=== PATIENT | female | born 1945 | race African-American/Black ===

== ENCOUNTER 2017-07-19 14:42 | Inpatient (IN) | payer OTHER, BC ==
[~2017-07-19] VITALS: Ht 165.1 cm; Wt 74.8 kg
--- NOTE | ~2017-07-19 | EKG ---
[address] [address] [place] [address] ELECTROCARDIOGRAM REPORT Name: ENA MOLINA [id number] Admission: 07/19/17 Attend Phys: Discharge: Date of : 41 Report #: [id number] THIS REPORT FOR: //name// [facility] ED Test Date: 2017-07-19 Test Time: 14:56:24 Pat Name: ENA MOLINA Department: Room: Gender: F Damage Inside Adjuster: ELIER : 1945 Requested By: Albert Mueller Order Number: [id number] MD: Chris Dhillon Measurements Intervals [place] Rate: 63 P: 34 HI: 180 QRS: -11 QRSD: 96 T: 30 QT: 397 QTc: 407 Interpretive Statements Sinus rhythm No significant abnormality Compared to ECG 03/17/2012 23:05:53 No significant changes Electronically Signed On 07-19-2017 16:09:23 COMPLAINT MANAGER by Chris Dhillon [email or web address] <ELECTRONICALLY SIGNED> By: Chris Dhillon MD, [facility] 07/19/17 1609 [id number] [id number] Chris Dhillon MD, FACC /EPI
[~2017-07-19 14:42] MED LIST: ALPRAZOLAM 0.0.25 M1 PO; AMLODIPINE-ATO1 EAC4; ATENOLOL 100MG100 M2 PO; CADUET 2.5 MG-1 EACH PO; CELEXA 10 MG TA10 M1; CLONAZEPAM 0.50.5 M1 PO; EYLEA2 MG/0.05 IO; HYDROCHLOROTHIA25 M1 PO; MOTION RELIEF25 MG PO
[2017-07-19 15:09] VITALS: BP 137/71
[2017-07-19 15:14] LABS: ABSOLUTE NEUTROPHILS 6.4 thou/uL (1.4-8.2); BASOPHILS 0.5 % (0.0-2.0); EOSINOPHILS 0.5 % (0.0-3.0); HEMOGLOBIN 12.7 gm/dL (12.0-15.0); LYMPHOCYTES 18.6 % (24.0-44.0); MCH 30.6 pg (26.0-34.0); MCHC 33.5 g/dL (28.0-37.0); MCV 91.4 fL (80.0-100.0); MONOCYTES 5.1 % (1.0-8.0); PLATELET COUNT 221 thou/uL (150-400); POLYS 75.3 % (36.0-66.0); RBC 4.16 mil/uL (4.20-5.00); RDW 13.8 % (10.5-14.5); WBC 8.5 thou/uL (4.0-11.0)
[2017-07-19 15:21] LABS: ANION GAP 5 mmol/L (7-16); BUN 13 mg/dL (7-18); CALCIUM 10.2 mg/dL (8.5-10.1); CHLORIDE 104 mmol/L (98-107); CO2 30 mmol/L (21-32); CREATININE 0.8 mg/dL (0.6-1.0); GLUCOSE 121 mg/dL (74-106); POTASSIUM 3.8 mmol/L (3.5-5.1); SODIUM 139 mmol/L (136-145)
[2017-07-19 15:27] LABS: APTT 26.3 Seconds (24.5-32.8); PROTIME 10.7 Seconds (9.3-11.4)
[2017-07-19 15:30] LABS: ALBUMIN 3.5 g/dL (3.4-5.0); MAGNESIUM 2.2 mg/dL (1.8-2.4); SGOT 21 U/L (15-37); SGPT 16 U/L (30-65); TOTAL BILIRUBIN 0.4 mg/dL (<0.1-1.0); TOTAL PROTEIN 6.9 g/dL (6.4-8.2); TROPONIN-I < 0.04 ng/mL (<0.06)
[2017-07-20] VITALS (7 sets, daily range): BP systolic 134–150; BP diastolic 70–81
[2017-07-20 00:02] LABS: URINE BILIRUBIN NEGATIVE (Negative); URINE BLOOD 1+ (Negative); URINE CLARITY CLEAR; URINE COLOR YELLOW; URINE GLUCOSE-RANDOM* NEGATIVE (Negative); URINE KETONES NEGATIVE (Negative); URINE NITRITE-REFLEX NEGATIVE (Negative); URINE PROTEIN (DIPSTICK) NEGATIVE (Negative); URINE SPECIFIC GRAVITY <= 1.005 (1.005-1.035); URINE UROBILINOGEN 0.2 E.U./dl (0.2-1.0)
[2017-07-20 00:07] LABS: URINE LEUKOCYTES-REFLEX 3+ (Negative)
[2017-07-20 00:14] LABS: CASTS None Seen /LPF (None Seen); CRYSTALS None Seen /LPF (None Seen); MUCUS None Seen strn/LPF (None Seen); SQUAMOUS 0-3 Few /LPF (0-3); TRANSITIONAL EPITHEL CELL 0-3 Few /LPF (None Seen); URINE RBC None Seen /HPF (0-2); URINE WBC-REFLEX 6-15 Few /HPF (0-5)
[2017-07-20 00:15] LABS: BACTERIA-REFLEX 1-9 Few /HPF (None Seen)
[2017-07-20] MEDS ORDERED: ATENOLOL 25 MG25 M1 PO (01:02)
[2017-07-20] MEDS ORDERED: AMLODIPINE BESY10 MG PO (01:03)
[2017-07-20] MEDS ORDERED: FISH OIL 1,001000 M2 PO (01:04)
[2017-07-20] MEDS ORDERED: ASPIR-LOW81 MG PO (01:05)
[2017-07-20 06:17] LABS: ALBUMIN 3.2 g/dL (3.4-5.0); CALCIUM 9.7 mg/dL (8.5-10.1); CREATININE 0.7 mg/dL (0.6-1.0); PHOSPHORUS 3.3 mg/dL (2.5-4.9); POTASSIUM 3.3 mmol/L (3.5-5.1); TOTAL BILIRUBIN 0.3 mg/dL (<0.1-1.0)
== END 2017-07-20 18:12 | disposition home or self-care (01) | DRG 206 ==
LOC: ER 14:42 → 2N 16:21 → EROBS 16:21 → 2N 07-20 00:21 → ENTRNSPT 07-20 17:53 → 2N 07-20 18:12
PROVIDERS: Emergency Medicine; Hospitalist
DX: M94.0 Chondrocostal junction syndrome [Tietze] (principal); R07.89 Other chest pain; I10 Essential (primary) hypertension; H35.30 Unspecified macular degeneration; E78.5 Hyperlipidemia, unspecified; Z88.8 Allergy status to other drugs, medicaments and biological substances; Z91.013 Allergy to seafood